=== PATIENT | male | born 1960 | race Caucasian/White ===

== ENCOUNTER 2017-11-23 05:35 | Observation (INO) | payer BC, OTHER ==
--- NOTE | 2017-11-10 11:35 | NUR ---
PATIENT HERE FOR PREADMISSION APPOINTMENT. PATIENT IS SCHEDULED FOR A LEFT TOTAL KNEE REPLACEMENT ON 11/23/17. HE HAS BEEN TO THE [facility] FOR PREOP PHYSICAL THERAPY APPOINTMENT ALREADY TODAY AND IS HEADED TO OBTAIN A FRONT WHEELED WALKER, SHOWER BENCH, HAND HELD SHOWER HEAD AND CANE FOR USE AFTER SURGERY. PATIENT STATES HIS [facility] WILL TRANSPORT HIM HOME WHEN HE IS DISCHARGED AND TO POST OP APPOINTMENTS. HE ALREADY HAS PHYSICAL THERAPY APPOINTMENTS SCHEDULED FOR AFTER SURGERY. HE STATES HE HAS FOUR STEPS INTO THE HOME WITH NO HAND RAIL. ONE STEP INSIDE THE HOME INTO A ROOM HE RARELY USES. HE WAS INSTRUCTED TO STOP ELIQUIS FIVE DAYS BEFORE SURGERY AND LUZ MARIA CRNA CAME AND INSTRUCTED HIM ON WHAT MEDICATIONS TO TAKE DAY OF PROCEDURE BEFORE ARRIVAL. THIS INFORMATION WILL BE SENT TO DR JUANA GALO AND JUANITA PLANNING FOR FURTHER FOLLOW UP.
[~2017-11-23] VITALS: Ht 175.3 cm; Wt 122.5 kg
[~2017-11-23 05:35] MED LIST: ALBUTEROL2.5 MG/3 M INH; ASPIRIN EC81 MG PO; ATORVASTATIN CA80 MG PO; CARVEDILOL12.5 MG PO; CARVEDILOL25 MG PO; COZAAR50 MG PO; CRESTOR40 MG PO; DEXILANT60 MG PO; DIGOX125 MCG PO; EFFIENT10 MG PO; ELIQUIS5 MG PO; EPLERENONE25 MG PO; ISOSORBIDE MONO30 MG PO; KLOR-CON M2020 MEQ PO; LOSARTAN POTASS50 MG PO; MIRAPEX0.25 MG PO; MONTELUKAST SOD10 MG PO; NITROGLYCERIN0.4 MG SL; OMEPRAZOLE20 MG PO; PANTOPRAZOLE SO40 MG PO; PRAMIPEXOLE D0.25 MG PO; PREDNISONE20 MG PO; SPIRONOLACTONE50 MG PO; TORSEMIDE20 MG PO; TUMS200 MG PO; VENTOLIN HFA18 GM INH; WARFARIN SODIUM5 MG PO
--- NOTE | 2017-11-23 08:29 | NUR ---
11/23/17 0829 Sari Rhodes TO PACU, ORAL AIRWAY IN PLACE. NON AROUSAL AT THIS TIME.
--- NOTE | 2017-11-23 09:14 | NUR ---
PATIENT ARRIVED FROM SURGERY. REPORT RECIEVED FROM ROSALIND SAXENA.
--- NOTE | 2017-11-23 10:28 | NUR ---
VITALS AND I AND O DONE
--- NOTE | 2017-11-23 14:53 | NUR ---
THIS DATA WAREHOUSE CONSULTANT FILLED CRYO WITH ICE. FRESH ICE WATER. RN IN ROOM. NO OTHER NEEDS AT THIS TIME.
[2017-11-23] MEDS ORDERED: METOPROLOL SUCC50 MG PO ×2 (16:59)
[2017-11-23] MEDS ORDERED: K-TAB ER20 MEQ PO (17:32)
--- NOTE | 2017-11-23 18:15 | NUR ---
PATIENT BLADDER SCANNED FOR 464 ML. PATIENT IS AWARE THAT HE MAY REQUIRE A BACA IF HE CANNOT VOID. PATIENT IS INSISTENT THAT HE WANTS TO ATTEMPT TO VOID.
--- NOTE | 2017-11-23 18:37 | NUR ---
PATIENT HAS BEEN FAIRLY PAIN FREE MOST OF THE DAY, HIS DIET HAS ADVANCED AND HE HAS BEEN EATING A CARDIAC DIET. VS HAVE HAVE BEEN GOOD EXCEPT FOR HIS TACHYCARDIA UP TO THHE 140'S AT TIMES, BUT HE DOES NOT FEEL IT AND HAS HAD A GOOD DAY WITH HIS . ALL STANDARD DRESSINGS INCLUDING THE CRYO CUFF ARE IN PLACE. STILL WAAITING FOR THE PATIENT TO VOID. WILL HAVE TO CATH SOON IF NO RESULTS.
--- NOTE | 2017-11-23 19:17 | NUR ---
IN ROOM FOR REPORT, PT IS AWAKE IN CHAIR. CALL LIGHT IS WITHIN REACH.
--- NOTE | 2017-11-23 22:02 | NUR ---
ACCOMPANIED PATIEN AMBULATES AROUND THE HALLWAY X3.
--- NOTE | 2017-11-23 22:58 | NUR ---
PT IS UP WALKING IN THE PANDYA WITH LUMBER TYING MACHINE OPERATOR.
--- NOTE | 2017-11-23 23:06 | NUR ---
ACCOMPANIED PATIENT AMBULATES AROUND THE HALLWAY X4. PATIENT IS BACK IN BED. CRYO CUFF AND SCDS ARE BACK ON. CALL LIGHTS WITHIN REACH.
--- NOTE | 2017-11-23 23:08 | NUR ---
ASSISTED PATIENT FROM THE BATHROOM, THEN ACCOMPANIED WALKING AROUND THE HALLWAY.
--- NOTE | 2017-11-23 23:29 | NUR ---
WOKE PT TO ADMINISTER ABX, PT DENIES FURTHER NEEDS AT THIS TIME. CALL LIGHT IS WITHIN REACH.
--- NOTE | 2017-11-24 00:51 | NUR ---
PT IS RESTING WITH EYES CLOSED, RESPIRATIONS EVEN AND NONLABORED. CALL LIGHT IS WITHIN REACH.
--- NOTE | 2017-11-24 02:18 | NUR ---
IN ROOM TO ADMINISTER MEDICATION. PT'S IV LEAKED SOME BLOOD, REPLACED CLAVE AND REWRAPPED IV. IT STILL FLUSHES WELL AND PT REPORTS NO PAIN. PT TO RESTROOM AND BACK TO BED AT THIS TIME. CALL LIGHT IS WITHIN REACH.
--- NOTE | 2017-11-24 03:27 | NUR ---
PT IS RESTING WITH EYES CLOSED, RESPIRATIONS ARE EVEN AND NONLABORED. CALL LIGHT IS WITHIN REACH.
--- NOTE | 2017-11-24 05:15 | NUR ---
PT IS AWAKE IN BED, BROUGHT PT FRESH WATER AND EMPTIED URINE. PT DENIES FURTHER NEEDS.
--- NOTE | 2017-11-24 05:29 | NUR ---
PT SLEPT WELL THROUGH THE NIGHT, NO COMPLAINTS OF PAIN. HE IS A 1PA WITH WALKER. CYRO CUFF, AES, AND SCDS IN PLACE. DRESSING ON LEFT KNEE HAS A VERY SMALL AMOUNT OF DRIED BLOOD. IV IN RIGHT HAND IS POSITIONAL AT TIMES WHEN FLUSHING. PT AMBULATED IN THE PANDYA SEVERAL TIMES BEFORE BED LAST NIGHT. URINE OUTPUT HAS BEEN GREAT BETWEEN 600-700 PER 4 HOUR BLOCK OF TIME.
--- NOTE | 2017-11-24 06:47 | NUR ---
IV IN PT'S RT HAND WOULD NOT FLUSH OR GIVE BLOOD RETURN. THIS RN ATTEMPTED TO START ANOTHER IV WITHOUT SUCESS. CHANGED DRESSING ON RIGHT HAND AND REALIGNED CATH AND IT FLUSHES WELL NOW. WILL CONTINUE TO MONITOR.
--- NOTE | 2017-11-24 07:26 | OR ---
[facility] [address] [place], [place] [address] Signed DATE OF OPERATION: 11/23/2017 SURGEON: Avis Suárez MD PREOPERATIVE DIAGNOSIS: Degenerative joint disease, left knee, severe. POSTOPERATIVE DIAGNOSIS: Degenerative joint disease, left knee, severe. PROCEDURE PERFORMED: Left total knee arthroplasty with computer navigation. PRINT PROJECT MANAGER: SALEEM Foster. Ana was present in critical position, retraction, and wound closure. ANESTHESIA: Spinal. BLOOD LOSS: Minimal. TOURNIQUET TIME: 56 minutes. IMPLANTS: Baldwin Triathlon size 6 femur, 5 tibia, 11 mm insert, and 35 mm patella. BRIEF HISTORY: Jag is a 57-year-old gentleman with progressive worsening of his arthritis. He tried nonoperative treatment including bracing, injections, and activity modification without substantial relief. Risks and benefits of operative treatment were discussed with him and he elected to proceed. DESCRIPTION OF PROCEDURE: Once consent was obtained, he was taken to the operating room. After adequate anesthesia, he was placed on operating table. All downside pressure points were well padded. The left leg was placed in well-padded proximal thigh tourniquet and placed on a bump. The leg was then prepped and draped in a standard sterile fashion and Electronically Signed By: AVIS SUÁREZ MD 11/24/17 0726 PATIENT NAME: DEE SILVA OPERATIVE REPORT DATE OF : 60 REPORT #: [id number] PHYSICIAN: AVIS SUÁREZ MD PCP: RAY MEIER DO REPORT IS CONFIDENTIAL AND NOT TO BE RELEASED WITHOUT AUTHORIZATION [facility] [address] [place], [place] [address] Signed exsanguinated using Esmarch bandage. Tourniquet inflated to 250 mmHg. Standard anterior approach through curved incision was taken through skin and subcutaneous tissue. Median parapatellar arthrotomy was performed and the infrapatellar fat pad was excised. The MCL was elevated to sleeve around the posteromedial corner. The knee was flexed. The anterior horn of the meniscus were transected as was the ACL. PCL was found to be intact. The navigation guide was pinned to the femur and the femur was registered with the computer. The distal femoral cutting block was then pinned in neutral alignment and distal femoral cut was made. The distal femur sized to a 6. The 6 AP cutting block was pinned in alignment with epicondylar axis. The anterior, posterior, chamfer cuts were made and osteophytes were excised along with the bone fragments. The attention was turned to the tibia. The menisci removed to allow better visualization. The navigation guide was pinned to the tibia. The tibia was registered with the computer. The cutting block was then pinned in neutral alignment and the proximal tibial cut was made. Care taken to protect the patellar tendon and MCL. The bone was removed. Any meniscal remnants removed. Posterior osteophytes removed off the femur and posterior release performed. Flexion-extension gaps were sized and found to be symmetric at 11 mm. The trials were then positioned. The knee was taken through range of motion 0-140 degrees of flexion with excellent stability throughout. The patella was cut sized and drilled for 35 mm patella. The knee was flexed and the distal femoral drill holes were placed. The tibia was finished using the keel punch and the trials removed. The bone surfaces were pulse lavaged and packed with dry Ray-Phuong. Cement was mixed and reached proper consistency, it was placed on bone surfaces and all implants. The tibia was impacted into position first followed by the femur and all excess cement was removed. The polyethylene was snapped into position. Knee was extended and nicely loaded. The patella was clamped into position. Again, the remaining cement was removed. The cement was allowed to harden and once it hardened sufficiently, the knee was flexed. Remaining cement was removed using osteotomes. The knee was pulse lavaged at intervals throughout the procedure. A total of 3 L of antibiotic irrigation was used. The arthrotomy was then closed using #2 Stratafix. Subcutaneous tissue with 0 Stratafix and skin with cheli. The wound was dressed with Mepilex Ag dressing, ABD, and Harpreet wrap. He was taken to the recovery room in satisfactory condition. All sponge, needle, and instrument counts were correct. Avis Suárez MD BA/MODL /[id number] Electronically Signed By: AVIS SUÁREZ MD 11/24/17 0726 PATIENT NAME: DEE SILVA OPERATIVE REPORT DATE OF : 60 REPORT #: [id number] PHYSICIAN: AVIS SUÁREZ MD PCP: RAY MEIER DO REPORT IS CONFIDENTIAL AND NOT TO BE RELEASED WITHOUT AUTHORIZATION [address] [address] Signed Copies: ~ Electronically Signed By: AVIS SUÁREZ MD 11/24/17 0726 PATIENT NAME: DEE SILVA OPERATIVE REPORT DATE OF : 60 REPORT #: [id number] PHYSICIAN: AVIS SUÁREZ MD PCP: RAY MEIER DO REPORT IS CONFIDENTIAL AND NOT TO BE RELEASED WITHOUT AUTHORIZATION
--- NOTE | 2017-11-24 07:34 | NUR ---
SHIFT REPORT RECEIVED FROM SALINAS. PATIENT ASLEEP DURING REPORT. NO APPARENT DISTRESS NOTED. CRYO CUFF IN PLACE, RYNE AND TONYA MATOS. IV ABX INFUSING. CALL LIGHT IN REACH.
[2017-11-24] MEDS ORDERED: OXYCODONE HCL5 MG PO (07:41)
[2017-11-24] MEDS ORDERED: MIRALAX17 GM PO (07:43)
[2017-11-24] MEDS ORDERED: NEURONTIN300 MG PO (07:43)
--- NOTE | 2017-11-24 08:05 | NUR ---
PATIENT SITTING AT BEDSIDE EATING BREAKFAST. REPORTS MILD PAIN ON THE LEFT KNEE. LUNGS CLEAR. DRESSING ON THE LEFT KNEE HAS A SMALL SHADOWNING ON THE UPPER TOP OF THE MEPILEX, ARSENIO WRAP OVER THE MEPILEX. MILD EDEMA NOTED ON THE LEFT KNEE. PERIPHERAL PULSES PALPABLE. GOOD CAP REFILL. CALL LIGHT IN REACH.
--- NOTE | 2017-11-24 10:00 | NUR ---
PATIENT SITTING UP IN CHAIR. THIS HAIRSPRING FABRICATION SUPERVISOR ASSISTED PATIENT WITH PACKING HIS BELONGINGS. PATIENT DENIED ANY NEEDS AND ASSURED THIS HAIRSPRING FABRICATION SUPERVISOR THAT HE WOULD NOT GET UP WITH OUT ASSISTANCE. THIS HAIRSPRING FABRICATION SUPERVISOR WENT TO GET FRESH ICE WATER FOR THE PATIENT AND FOUND THE PATIENT STANDING UP AT THE COUCH WITH OUT HIS WALKER. THIS HAIRSPRING FABRICATION SUPERVISOR TOLD THE PATIENT THAT LONG HE IS HERE HE NEEDS TO CALL AND WAIT FOR HELP TO GET UP. PATIENT LAUGHED. THIS HAIRSPRING FABRICATION SUPERVISOR ASSISTED THE PATIENT WITH PUTTING ON HIS SOCKS AND SHOES WHILE PATIENT WAS SITTING UP ON COUCH. PATIENT WANTED TO STAY ON COUCH THIS HAIRSPRING FABRICATION SUPERVISOR STAYED IN ROOM UNTIL PATIENT WAS READY TO GET UP TO THE BATHROOM. PATIENT CALLED FOR ASSISTANCE DUE TO PATIENT'S LEFT KNEE INCISION HAD SLIGHT DRAINAGE. RN IN ROOM TO ASCESS. PATIENT BACK TO CHAIR WITH CALL LIGHT IN REACH. NO OTHER NEEDS AT THIS TIME.
--- NOTE | 2017-11-24 11:15 | NUR ---
PATIENT UP TO BATHROOM WITH HIS TO ASSIST. THIS POLICE CAPTAIN LET KNOW THAT A STAFF MEMBER NEEDS TO ASSIST THE PATIENT. WAS UPSET AND STATED THAT IF "HE IS GOING TO FALL HERE THEN HE'S GOING TO FALL AT HOME." THIS POLICE CAPTAIN STATED THAT WE WOULD LIKE TO PREVENT THAT AND THAT IS WHY WE NEED TO ASSIST THE PATIENT. ASKED WHEN IS THE PATIENT GOING TO SEE THE PT AND THAT SHE WANTS HIM TO BE OUT OF THE HOSPITAL BY 1200 DUE TO WE WILL CHARGE HIM FOR ANOTHER DAY. THIS POLICE CAPTAIN TOLD THE PATIENTS THAT THE PT IS WORKING WITH ANOTHER PATIENT AT THIS TIME AND THAT I WILL HAVE A NURSE COME INTO THE ROOM TO DISCUSS THE PLAN AGAIN. POLICE CAPTAIN STAYED IN THE PATIENTS ROOM TO ASSIST.
--- NOTE | 2017-11-24 11:20 | NUR ---
PATIENT UP WALKING IN THE HALLWAY WITH PHYSICAL THERAPIST. TOLERATED WELL.
--- NOTE | 2017-11-24 12:04 | NUR ---
PT CALLED TO SAY HE NEEDED TO USE THE BATHROOM, PT STOOD AND WALKED TO THE BATHROOM WITH WALKER, VOIDED, AND RETURNED TO CHAIR AND IS NOW SITTING UP WITH CALL LIGHT IN REACH WAITING TO BE DISCHARGED.
--- NOTE | 2017-11-24 13:34 | NUR ---
PT DRESSED, WAITING FOR DC ORDERS. HIS BY HIS SIDE. HE SAID HIS PAIN IS AT 1, VERY ANXIOUS TO GET HOME. EXTENDED A BLESSING, WILL FOLLOW NEEDED
--- NOTE | 2017-11-25 11:34 | NUR ---
FAXED CHART NOTES INCLUDING FACESHEET, ORDER, H AND P, OP NOTES, PROG NOTES AND PT AND OT EVALS AND NOTES TO [facility] OP PT. TALKED TO LARON BARDALES, AT [facility] OP PT.
== END 2017-11-24 13:26 | disposition home or self-care (01) ==
LOC: DS 05:35 → MS 09:00
PROVIDERS: ADMIT Specialist
PROC: 8E0YXBZ Computer Assisted Procedure of Lower Extremity (ICD-10-PCS; 2017-11-23)
PROC: 3E0T3BZ Introduction of Anesthetic Agent into Peripheral Nerves and Plexi, Percutaneous Approach (ICD-10-PCS; 2017-11-23)
PROC: 0SRD0J9 Replacement of Left Knee Joint with Synthetic Substitute, Cemented, Open Approach (ICD-10-PCS; principal; 2017-11-23 06:45)
DX: M17.12 Unilateral primary osteoarthritis, left knee (principal); G89.18 Other acute postprocedural pain; I25.10 Atherosclerotic heart disease of native coronary artery without angina pectoris; G89.29 Other chronic pain; I25.5 Ischemic cardiomyopathy; I11.0 Hypertensive heart disease with heart failure; I50.22 Chronic systolic (congestive) heart failure; E78.00 Pure hypercholesterolemia, unspecified; K44.9 Diaphragmatic hernia without obstruction or gangrene; E78.5 Hyperlipidemia, unspecified; E66.9 Obesity, unspecified; G25.81 Restless legs syndrome; I48.0 Paroxysmal atrial fibrillation; Z87.891 Personal history of nicotine dependence; Z88.8 Allergy status to other drugs, medicaments and biological substances; Z79.02 Long term (current) use of antithrombotics/antiplatelets; Z95.810 Presence of automatic (implantable) cardiac defibrillator; Z79.82 Long term (current) use of aspirin; Z79.899 Other long term (current) drug therapy; Z79.1 Long term (current) use of non-steroidal anti-inflammatories (NSAID); Z68.39 Body mass index [BMI] 39.0-39.9, adult
CPT/HCPCS: 01402; 36415; 64447; 76942; 80048; 80162; 85025; 85610; 96374; 96375; 96376; 97110; 97116; 97162; C1713; C1776; G0378; G8978; G8979; J0690; J0735; J1100; J1885; J2250; J2274; J2405; J2704; J2765; J3010; J7120

== ENCOUNTER 2018-03-05 15:33 | Emergency (ER) | payer OTHER, BC ==
[~2018-03-05] VITALS: Ht 175.3 cm; Wt 122.5 kg
[~2018-03-05 15:33] MED LIST changes: +K-TAB ER20 MEQ PO; +METOPROLOL SUCC50 MG PO; +MIRALAX17 GM PO; +NEURONTIN300 MG PO; +OXYCODONE HCL5 MG PO
== END 2018-03-05 18:54 | disposition home or self-care (01) ==
LOC: ED 15:33
DX: S43.401A Unspecified sprain of right shoulder joint, initial encounter (principal); I10 Essential (primary) hypertension; E78.00 Pure hypercholesterolemia, unspecified; Z87.891 Personal history of nicotine dependence; Z88.8 Allergy status to other drugs, medicaments and biological substances; Z79.899 Other long term (current) drug therapy; Z79.82 Long term (current) use of aspirin; X50.0XXA Overexertion from strenuous movement or load, initial encounter
CPT/HCPCS: 73030; 99283